=== PATIENT | female | born 1960 | race Caucasian/White ===

== ENCOUNTER 2020-10-25 11:23 | Emergency (ER) | payer OTHER, SELFPAY ==
[2020-10-25 11:32] VITALS: BP 137/76; PULSE 98; RESP 16; TEMP 37.1; O2SAT 100
--- NOTE | 2020-10-25 11:45 | ED.EAR ---
HPI - Ear Problem General Chief complaint: Ear Stated complaint: Pt has very little hearing out of both Ears Source: patient Mode of arrival: ambulatory Limitations: no limitations History of Present Illness HPI Narrative: Patient is a 60-year-old female who presents complaining of fullness to bilateral ears x2 to 3 days. She reports initially having some rhinorrhea, congestion and sneezing. She reports a history of allergies. She denies pain to bilateral ears, reports decreased hearing. She denies other significant medical history. She denies taking [id number] medications prior to arrival. MD Complaint: decreased hearing Related Data Home Medications Medication Instructions Recorded Confirmed No Home Medications 10/25/20 10/25/20 Allergies Allergy/AdvReac Type Severity Reaction Status Date / Time No Known Allergies Allergy Verified 10/25/20 11:41 Review of Systems Review of Systems: CONSTITUTIONAL: Denies fever, chills, or sweats. EYES: Denies visual changes, redness, or discharge. ENT: Denies rhinorrhea, congestion, sore throat, reports fullness bilateral ears and decreased hearing CARDIOVASCULAR: Denies chest pain, palpitations, or edema. RESPIRATORY: Denies cough or dyspnea. GASTROINTESTINAL: Denies abdominal pain, nausea, vomiting, or diarrhea. GENITOURINARY: Denies dysuria or hematuria. SKIN: Denies rash or itching. MUSCULOSKELETAL: Denies back pain, joint pain, or myalgia. NEUROLOGIC: Denies headache, numbness, dizziness, or weakness. PSYCHIATRIC: Denies anxiety or depression. [facility] Past Medical History Medical History No significant past medical history Surgical History Surgical History H/O: Family History Family History (Updated 10/25/20 @ 11:49 by CECILE Bazzi) Other No significant family history Social History Social History (Updated 10/25/20 @ 11:49 by CECILE Bazzi) Smoking status: Never smoker Alcohol intake: current Alcohol use details: Occasional Substance use: never Occupation/Education: occupation Comments At the time of signature, I have reviewed and agree with nursing past medical, surgical, social, and family history unless otherwise noted. Please see nursing chart for further information. There is no relevant family history pertinent to the presenting complaint. Exam Narrative: GENERAL: Well-appearing, well-nourished, and in no acute distress. HEAD: Normocephalic, atraumatic. EYES: No redness or drainage. Conjunctiva are normal. ENT: Mucous membranes pink and moist. Nares clear. No rhinorrhea. Left TM full, right TM cerumen impacted and not visualized. Throat normal. Uvula midline. NECK: AROM. Supple. No lymphadenopathy. CHEST: No respiratory distress. EXTREMITIES: Normal range of motion. SKIN: Warm, dry, no rash. NEURO: No focal deficits. Alert and oriented x3. Gait steady. PSYCH: Normal affect. No signs of depression or anxiety. Course Vital Signs Vital signs: Vital Signs Temperature 37.1 C 10/25/20 11:32 Pulse Rate 98 10/25/20 11:32 Respiratory Rate 16 10/25/20 11:32 Blood Pressure 137/76 10/25/20 11:32 Pulse Oximetry 100 10/25/20 11:32 Temperature 37.1 C 10/25/20 11:32 Pulse Rate 98 10/25/20 11:32 Respiratory Rate 16 10/25/20 11:32 Blood Pressure 137/76 10/25/20 11:32 Pulse Oximetry 100 10/25/20 11:32 Reviewed-patient is informed that they may have pre-hypertension or hypertension based on a blood pressure reading. I recommend the patient call the primary care provider listed on their discharge instructions or a physician of their choice this week to arrange follow-up for further evaluation of possible pre-hypertension or hypertension. Procedures Ear Wax Removal Right Ear: Cerumenolytic Used: other (peroxide and saline) Results: Re-exami
== END 2020-10-25 12:14 | disposition home or self-care (01) ==
PROVIDERS: Emergency Provider Nurse Practitioner
DX: H61.21 Impacted cerumen, right ear (principal)
CPT/HCPCS: 69210; 99213; G0463

== ENCOUNTER 2022-02-08 08:47 | Emergency (ER) | payer OTHER, SELFPAY ==
[2022-02-08 09:34] VITALS: BP 123/82; PULSE 94; RESP 18; TEMP 36.8; O2SAT 100
--- NOTE | 2022-02-08 10:22 | ED.FEMALEGU ---
HPI - Female Genitourinary General Chief complaint: Urogenital-Female Stated complaint: Urinary Problem Time Seen by Provider: 02/08/22 10:23 Source: patient, RN notes reviewed and old records reviewed Mode of arrival: ambulatory Limitations: no limitations History of Present Illness HPI Narrative: 61-year-old female presents to [facility] with complaints of burning with urination lower suprapubic abdominal and perineal discomfort with urgency and frequency since yesterday. Patient reports she had cold symptoms last week then worked 2 shifts and knows she did not drink well on her work shifts. Patient reports no fevers, chills or sweats, denies any nausea or vomiting. Patient reports that she has increased her oral intake and she did take AZO for her symptoms. MD elicited complaint: UTI Onset (ago): day(s) (day 2 of symptoms) Severity scale (1-10): 5 Related Data Allergies Allergy/AdvReac Type Severity Reaction Status Date / Time No Known Allergies Allergy Verified 02/08/22 09:34 Review of Systems Review of Systems: CONSTITUTIONAL: Denies fever, chills, or sweats. CARDIOVASCULAR: Denies chest pain, palpitations, or edema. RESPIRATORY: Denies cough or dyspnea. GASTROINTESTINAL: Denies abdominal pain, nausea, vomiting, or diarrhea. GENITOURINARY: Reports dysuria, frequency, urgency. Denies flank pain or hematuria. SKIN: Denies rash or itching. MUSCULOSKELETAL: Denies back pain or myalgia. Denies CVA tenderness NEUROLOGIC: Denies headache All systems reviewed & are unremarkable except as noted in HPI and below PMFSH Past Medical History Medical History No significant past medical history Surgical History Surgical History H/O: Family History Family History Other No significant family history Social History Social History Smoking status: Never smoker Alcohol intake: current Alcohol use details: Occasional Substance use: never Comments At time of signature, agree with nursing past medical, surgical, social and family history. There is no relevant family history pertinent to the presenting complaint Exam Narrative: GENERAL: Well-appearing, well-nourished, and in no acute distress. HEAD: Normocephalic, atraumatic. NECK: Supple.no lymphadenopathy CHEST: Clear to auscultation. No respiratory distress.SAO2 100% on room air HEART: Regular rate and rhythm. No murmur heard. Normal peripheral pulses. ABDOMEN: Soft, nontender, nondistended, normal active bowel sounds. No CVA tenderness, suprapubic and perineal discomfort with urinary frequency urgency and burning reported EXTREMITIES: Normal range of motion. No edema. SKIN: Warm, dry, no rash. NEURO: No focal deficits. Alert and oriented x3. Course Course Emergency Course: Patient is aware of diagnosis, understands and agrees to treatment plan.? Anticipatory guidance given.? Patient agrees to follow-up as directed and is aware of reasons to seek care at the emergency department. Portions of this record may have been created with voice recognition software Level of Care: Express Care Visit Vital Signs Vital signs: Vital Signs Temperature 36.8 C 02/08/22 09:34 Pulse Rate 94 02/08/22 09:34 Respiratory Rate 18 02/08/22 09:34 Blood Pressure 123/82 02/08/22 09:34 Pulse Oximetry 100 02/08/22 09:34 Oxygen Delivery Room Air 02/08/22 09:34 Temperature 36.8 C 02/08/22 09:34 Pulse Rate 94 02/08/22 09:34 Respiratory Rate 18 02/08/22 09:34 Blood Pressure 123/82 02/08/22 09:34 Pulse Oximetry 100 02/08/22 09:34 Oxygen Delivery Room Air 02/08/22 09:34 MDM - Female Genitourinary MDM Narrative Medical decision making narrative: Exam findings and UA show no acute concerns or changes; patient
== END 2022-02-08 10:40 | disposition home or self-care (01) ==
PROVIDERS: Emergency Provider Registered Nurse
DX: N39.0 Urinary tract infection, site not specified (principal)
CPT/HCPCS: 81003; 87077; 87086; 87186; 99213; G0463